=== PATIENT | male | born 1970 | race Two or more races ===

== ENCOUNTER 2017-11-07 09:39 | Emergency (ER) | payer MEDICAID, OTHER ==
[2017-11-07 09:39] VITALS: BMI 21.7
[2017-11-07 09:45] VITALS: BP 132/96; PULSE 96; RESP 18; TEMP 97.7; O2SAT 97
--- NOTE | 2017-11-07 10:48 | C.PDOC ---
History Of Present Illness 47 y/o male presents to the ER complaining of left lateral rib pain. Patient reports the pain started after he slipped and fell on ice a week ago. Patient reports the pain improves with Motrin and becomes worse with coughing. Patient denies having any other medical problems. Time Seen by Provider: 11/07/17 10:22 Chief Complaint (Nursing): Rib Injury History Per: Patient History/Exam Limitations: no limitations Onset/Duration Of Symptoms: Days Current Symptoms Are (Timing): Still Present Severity: Moderate Past Medical History Reviewed: Historical Data, Nursing Documentation, Vital Signs Vital Signs: Last Vital Signs Temp 97.7 F 11/07/17 09:42 Pulse 96 H 11/07/17 09:42 Resp 18 11/07/17 09:42 BP 132/96 H 11/07/17 09:42 Pulse Ox 97 11/07/17 10:58 - Medical History PMH: No Chronic Diseases Surgical History: No Surg Hx - [facility] Procedures OTH & OPEN REPAIR DIRECT INGUINAL HERNIA W GRAFT OR PROSTH (07/16/13) Family History: States: No Known Family Hx - Social History Hx Tobacco Use: Yes (1/2 pk daily) Hx Alcohol Use: Yes Hx Substance Use: No - Immunization History Hx Tetanus Toxoid Vaccination: No Hx Influenza Vaccination: Yes Hx Pneumococcal Vaccination: No Review Of Systems Except As Marked, All Systems Reviewed And Found Negative. Cardiovascular: Positive for: Chest Pain Neurological: Negative for: Weakness, Numbness Physical Exam - Physical Exam Appears: Non-toxic, No Acute Distress Skin: Normal Color, Warm Head: Atraumatic, Normacephalic Eye(s): bilateral: Normal Inspection, PERRL Nose: Normal Oral Mucosa: Moist Neck: Supple Chest: Symmetrical, Tenderness (left ribs) Cardiovascular: Rhythm Regular Respiratory: Normal Breath Sounds, No Accessory Muscle Use, No Rales, No Rhonchi , No Wheezing Extremity: Normal ROM Neurological/Psych: Oriented x3, Normal Speech, Normal Cognition, Normal Motor, Normal Sensation ED Course And Treatment O2 Sat by Pulse Oximetry: 97 (RA) Pulse Ox Interpretation: Normal - Radiology CXR: Interpreted by Me CXR Interpretation: Yes: No Acute Disease - Other Rad L ribs X-Ray: Interpreted by Me (+ L 6th rib fx min disloc.) Medical Decision Making Medical Decision Making: Plan: -- X-Ray Left Chest and Ribs --Motrin - 600 mg PO slip and fall 1 wk ago, no surrounding swelling + minimally displacced lateral 6th rib fx. Disposition Doctor Will See Patient In The: Office Counseled Patient/Family Regarding: Studies Performed, Diagnosis - Disposition Disposition: HOME/ ROUTINE Disposition Time: 11:22 Condition: GOOD Forms: [facility] (Malay) - Clinical Impression Clinical Impression: Rib fracture - Scribe Statement The provider has reviewed the documentation as recorded by the Herber Knight Provider Attestation: All medical record entries made by the Herber were at my direction and personally dictated by me. I have reviewed the chart and agree that the record accurately reflects my personal performance of the history, physical exam, medical decision making, and the department course for this patient. I have also personally directed, reviewed, and agree with the discharge instructions and disposition.
--- NOTE | 2017-11-07 12:17 | RAD ---
PROCEDURE: Radiographs of the Chest and Left Ribs. HISTORY: L lateral rib tender, fall 1 week ago (dot for [facility] COMPARISON: Chest x-ray performed 07/04/13. TECHNIQUE: Frontal radiograph of the chest and multiple oblique radiographs of the left ribs were obtained. FINDINGS: LEFT RIBS: Left 8th rib fracture. LUNGS: No focal consolidation identified. Emphysematous changes. Please note that chest x-ray has limited sensitivity for the detection of pulmonary masses. PLEURA: Blunting of the left costophrenic angle may reflect trace pleural effusion/pleural thickening. No definite pneumothorax. CARDIOVASCULAR: Heart size appears within normal limits. OTHER FINDINGS: None. IMPRESSION: Mildly displaced left eighth rib fracture deformity. Blunting of left costophrenic angle may reflect trace pleural effusions/ pleural thickening. Emphysematous changes. Study marked for PA review.
== END 2017-11-07 11:42 | disposition home or self-care (01) ==
LOC: C.ER 09:39
DX: S22.32XA Fracture of one rib, left side, initial encounter for closed fracture (principal); W00.0XXA Fall on same level due to ice and snow, initial encounter; Y92.89 Other specified places as the place of occurrence of the external cause